=== PATIENT | female | born 1985 | race Caucasian/White ===

== ENCOUNTER 2018-02-08 14:06 | Emergency (ER) | payer OTHER ==
[~2018-02-08] VITALS: Ht 165.1 cm; Wt 77.6 kg
[2018-02-08 15:57] VITALS: BP 110/77
== END 2018-02-08 16:14 | disposition home or self-care (01) ==
LOC: ER 14:06
DX: S61.512A Laceration without foreign body of left wrist, initial encounter (principal); S00.93XA Contusion of unspecified part of head, initial encounter; S90.511A Abrasion, right ankle, initial encounter; F17.210 Nicotine dependence, cigarettes, uncomplicated; Z88.6 Allergy status to analgesic agent; Z88.5 Allergy status to narcotic agent; W25.XXXA Contact with sharp glass, initial encounter; Y93.89 Activity, other specified; Y92.89 Other specified places as the place of occurrence of the external cause; Y99.8 Other external cause status